=== PATIENT | female | born 1990 | race Two or more races ===

== ENCOUNTER 2025-01-22 18:04 | Emergency (ER) | payer SELFPAY ==
[~2025-01-22] VITALS: Ht 162.6 cm; Wt 83.8 kg
[2025-01-22] MEDS: GABAPENTIN 300 MG CAP PO ONE (19:00)
[2025-01-22 19:44] VITALS: BP 119/90; TEMP 98.3
[2025-01-22 19:50] VITALS: PULSE 76; RESP 16; O2SAT 98
--- NOTE | 2025-01-22 19:55 | ED.PDOC ---
History of Present Illness HPI Comments 34 y/o presents with c/c right arm tingling, weakness and pain. Patient endorses on onset of symptoms following recent urgent care visit for Hoffmeister Palsey on 01/19/25. Patient presented to clinic with only left sided facial droop only and has been taking medications as prescribed. Denies any slur speech, aphasia, numbness, or further associated symptoms. Vital signs were stable at arrival. Chief Complaint: Right Sided Weakness Time Seen by MD: 18:45 Reviewed Notes: Nurses Notes, Medications, Allergies Allergies: Coded Allergies: NO KNOWN ALLERGIES (Unverified , 01/22/25) Information Source: Patient Mode of Arrival: Ambulatory Severity: Moderate Timing: Hours Duration: Since onset Prehospital treatment: None Past Medical History PAST MEDICAL HISTORY: Denies Past Medical History (Other): Recently diagnosed with Gonzalez's palsy Surgical History: Denies all surgeries CUT OFF SAW TENDER METAL History: No Pertinent CUT OFF SAW TENDER METAL History Social History Smoker: Non-Smoker Alcohol: Denies ETOH Use Drugs: Denies Drug Use Lives In: Home Constitutional: denies: chills, diaphoresis, fatigue, fever, malaise, sweats, weakness, others EENTM: reports: others (Patient displays a mild inability to completely close right eye. No scleral injection. No signs of trauma.); denies: blurred vision, double vision, ear bleeding, ear discharge, ear drainage, ear pain, ear ringing, eye pain, eye redness, hearing loss, mouth pain, mouth swelling, nasal discharge, nose bleeding, nose congestion, nose pain, photophobia, tearing, throat pain, throat swelling, voice changes Respiratory: denies: cough, hemoptysis, orthopnea, SOB at rest, shortness of breath, SOB with excertion, stridor, wheezing, others Cardiovascular: denies: chest pain, dizzy spells, diaphoresis, Dyspnea on exertion, edema, irregular heart beat, left arm pain, lightheadedness, palpitations, PND, syncope, others Gastrointestinal: denies: abdomen distended, abdominal pain, blood streaked bowels, constipated, diarrhea, dysphagia, difficulty swallowing, hematemesis, melena, nausea, poor appetite, poor fluid intake, rectal bleeding, rectal pain, vomiting, others Genitourinary: denies: abnormal vagina bleeding, burning, dyspareunia, dysuria, flank pain, frequency, hematuria, incontinence, pain, , vagina discharge, urgency, others Neurological: denies: dizziness, fainting, headache, left sided numbness, left sided weakness, numbness, paresthesia, pre-existing deficit, right sided numbness, right sided weakness, seizure, speech problems, tingling, tremors, weakness, others Musculoskeletal: reports: others (Right arm pain, tingling and numbness); denies: back pain, gout, joint pain, joint swelling, muscle pain, muscle stiffness, neck pain Integumetry: denies: bruises, change in color, change in hair/nails, dryness, laceration, lesions, lumps, rash, wounds, others Allergic/Immunocompromised: denies: Difficulty Healing, Frequent Infections, Hives, Itching, others Hematologic/Lymphatic: denies: anemia, blood clots, easy bleeding, easy bruising, swollen glands, others Endocrine: denies: excessive hunger, excessive sweating, excessive thirst, excessive urination, flushing, intolerance to cold, intolerance to heat, unexplained weight gain, unexplained weight loss, others Psychiatric: denies: anxiety, bipolar disorder, depression, hopeless, panic disorder, schizophrenia, sleepless, suicidal, others All Other Systems: Reviewed and Negative (as per HPI) Physical Exam General Appearance: Moderate Distress ([id number] distress due to right arm concerns and anxiety related to right arm.), Normal HEENT: Pharynx Normal, TMs Normal, Other (Patient is unable to completely close right eye. Mild left-sided droop of the commissure.) Neck: Full Range of Motion, Non-Tender, Normal, Normal Inspection Respiratory: Chest Non-Tender, Lungs Clear, No Accessory Muscle Use, No Respiratory Distress, Normal Breath Sounds Cardiovascular: No Edema, No JVD, No Murmur, No Gallop, Normal Peripheral Pulses, Regular Rate/Rhythm Breast Exam: Deferred Gastrointestinal: No Organomegaly, Non Tender, No Pulsatile Mass, Normal Bowel Sounds, Soft Genitalia: Deferred Pelvic: Deferred Rectal: Deferred Extremities: Other (Relatively unremarkable evaluation of right arm concerns. Patient complains of numbness, pain and tingling, but no signs of trauma, edema, ecchymosis or infection.) Neurologic: Alert, No Motor Deficits, Normal Affect, Normal Mood, No Sensory Deficits Cerebellar Function: NOT DONE Reflexes: NOT DONE Skin: Dry, Normal Color, Warm Lymphatic: No Adenopathy Was a procedure done? Was a procedure done?: No Differential Dx Considerations may include: Subarachnoid hemorrhage, subdural hematoma, intracranial mass, cervical neuropathy, disc degeneration of the cervical spine X-Ray, Labs, Meds, VS Vital Signs Date Time Temp Pulse Resp B/P (MAP) Pulse Ox O2 Delivery O2 Flow Rate FiO2 01/22/25 19:50 76 16 98 Room Air 01/22/25 19:44 98.3 76 16 119/90 (100) 98 98.3 01/22/25 18:08 98.7 88 20 131/91 98 98.7 Current Medications Medications (Trade) Dose Ordered Sig/Katharine Route Start Time Stop Time Status Last Admin Gabapentin (Neurontin Capsule) 600 mg ONCE ONCE PO 01/22/25 19:00 01/22/25 19:01 DC 01/22/25 19:00 X-Ray, Labs, Meds, VS Comment All studies performed the ED were evaluated by me personally. CT of the head was unremarkable for any acute intracranial processes or neoplasm. Cervical spi ne evaluation was unremarkable for any degenerative disc disease or possible cause of neuropathy. Advised patient follow up with the primary care provider next week for continued evaluation. Time of 1ST Reevaluation: 20:16 Reevaluation 1ST: Improved Consultation: PCP Patient Education/Counseling: Diagnosis, Treatment, Need For Follow Up Family Education/Counseling: Diagnosis, Treatment, No Family Present SEPSIS Sepsis Screen Date sepsis recognized/suspect: Jan 22, 2025 Time Sepsis recognized/suspect: 1811 Recent Procedure: No On Antibiotic Therapy: No Respiratory Rate >20: No Heart Rate >90: No Temp<36 C (96.8 F) or >38.3 C: No SBP <90 or MAP <65 mmHG: No New Acute Mental Status Change: No Is the patient on CPAP, BIPAP,: No Physician Orders Head Without Contrast (01/22/25 18:50) Cervical Without Contrast (01/22/25 18:50) Vital Signs Date Time Temp Pulse Resp B/P (MAP) Pulse Ox O2 Delivery O2 Flow Rate FiO2 01/22/25 19:50 76 16 98 Room Air 01/22/25 19:44 98.3 76 16 119/90 (100) 98 98.3 01/22/25 18:08 98.7 88 20 131/91 98 98.7 Medications Medications Dose Ordered Sig/Katharine Route Start Time Stop Time Status Last Admin Dose Admin Gabapentin 600 mg ONCE ONCE PO 01/22/25 19:00 01/22/25 19:01 DC 01/22/25 19:00 Departure 1 Departure Time of Disposition: 20:17 Impression: Primary Impression: Radiculopathy affecting upper extremity Disposition: HOME / SELF CARE / HOMELESS Condition: Stable Additional Instructions: Advised patient utilize medication as needed for symptomatic relief. If symptoms do not resolve in the next few days, patient will need to follow up with the primary care provider. Additionally, advised patient to always maintain copious lubrication in her eye to stave off any conjunctival or corneal damage. e-Prescriptions Gabapentin (Gabapentin) 300 Mg Cap 1 CAP PO Q4HP PRN, #30 CAP 0 Refills Prov: KATINA ROBLES PAC 01/22/25 Discharged With: Self, Friend Critical Care Note Critical Care Time?: No Stability Stability form required: No Heart Score Heart Score: Heart Score Response (Comments) Value History N/A 0 EKG N/A 0 Age N/A 0 Risk Factors N/A 0 Troponin N/A 0 Total 0 I personally scribed for KATINA ROBLES PAC ([email or web address]) on 01/22/25 at 19:55. Electronically submitted by Carlos Laws ([email or web address]). KATINA ROBLES PAC Jan 22, 2025 19:55
--- NOTE | 2025-01-22 19:58 | DVH ---
CT BRAIN WITHOUT CONTRAST HISTORY: Facial paralysis TECHNIQUE: Axial scans were obtained from the skull base through the vertex without contrast. Sagitta l and coronal reformats were generated. One or more of the following radiation dose reduction techniq ues were used for this examination: automated exposure control, adjustment of the mA and/or kV accord ing to patient size, use of iterative reconstruction technique. COMPARISON: None FINDINGS: No acute intracranial hemorrhage or evidence of large vessel territorial infarction identified at thi s time. No midline shift. The basilar cisterns are patent. Macias-white differentiation appears relati vely preserved. The visualized paranasal sinuses and mastoid air cells are clear. No grossly displaced calvarial abno rmalities identified. IMPRESSION: No acute intracranial findings. If there is persistent clinical concern, MRI may be considered to fu rther evaluate.
--- NOTE | 2025-01-22 19:59 | DVH ---
CLINICAL HISTORY: Right arm deficits TECHNIQUE: CT exam of the cervical spine was performed without intravenous contrast. This exam was pe rformed according to our departmental dose optimization program. Up-to-date CT equipment and radiatio n dose reduction techniques are utilized as appropriate. 22.68 CTDI: 22.68 DLP: 505.27 WID: COMPARISON: None FINDINGS: There is normal cervical alignment. The vertebral body heights are maintained. No acute cervical frac ture or subluxation is identified. No significant central or neural foraminal narrowing is identified . The paraspinous soft tissues are unremarkable. The lung apices are clear. IMPRESSION: No acute fracture or traumatic malalignment.
[2025-01-22] MEDS ORDERED: GABA-1250 PO (20:18)
== END 2025-01-22 20:30 | disposition home or self-care (01) ==
LOC: ER 18:04
DX: M54.10 Radiculopathy, site unspecified (principal); Z79.899 Other long term (current) drug therapy
CPT/HCPCS: 70450; 72125; 82947